=== PATIENT | female | born 1950 | race Caucasian/White ===

== ENCOUNTER → 2016-09-20 | Outpatient (CLI) | payer BC | LOC: US 11:00 | DX: R79.89 Other specified abnormal findings of blood chemistry (principal); N27.1 Small kidney, bilateral ==

== ENCOUNTER → 2020-10-15 | Outpatient (CLI) | payer MEDICARE | LOC: ECHO 10-13 13:30 | DX: I10 Essential (primary) hypertension (principal); R01.1 Cardiac murmur, unspecified; I08.2 Rheumatic disorders of both aortic and tricuspid valves | CPT/HCPCS: ECHO; 93306 ==

== ENCOUNTER → 2020-11-07 | Outpatient (CLI) | payer MEDICARE | LOC: MAMO 15:30 | DX: Z12.31 Encounter for screening mammogram for malignant neoplasm of breast (principal) | CPT/HCPCS: 77063; 77067 ==

== ENCOUNTER → 2021-09-29 | Outpatient (CLI) | payer MEDICARE | LOC: KOH-I 16:05 | DX: J20.9 Acute bronchitis, unspecified (principal) | CPT/HCPCS: 71046 ==

== ENCOUNTER → 2021-11-16 | Outpatient (CLI) | payer MEDICARE | LOC: ECHO 10-29 12:15 | DX: Z12.31 Encounter for screening mammogram for malignant neoplasm of breast (principal); I35.0 Nonrheumatic aortic (valve) stenosis; I10 Essential (primary) hypertension; I87.329 Chronic venous hypertension (idiopathic) with inflammation of unspecified lower extremity; R60.9 Edema, unspecified | CPT/HCPCS: ECHO; 77063; 77067; 93306 ==